=== PATIENT | female | born 1995 | race Caucasian/White ===

== ENCOUNTER → 2019-12-23 10:12 | Outpatient (CLI) | payer OTHER, SELFPAY ==
--- NOTE | ~2019-12-23 | US_ITS ---
EXAMINATION: US OB <= 14 weeks fetus DATE: 12/23/2019 11:28 INDICATION: Evaluate dating of with indeterminate last menstrual periods. TECHNIQUE: Real-time pelvic ultrasound utilizing transabdominal probe was performed. The nicloe marley radiologist was not present for the study. COMPARISON: None. FINDINGS: The uterus measures 15.3 x 7.0 x 10.6 cm. There is an intrauterine gestational sac. A single fetus i s identified within the gestational sac. The crown rump length measures 6.2 cm, which correlates with an estimated gestational age of 12 weeks and 4 days. heart motion is identified measuring 158 beats per minute (bpm) by M-mode Doppler. The placenta is anterior. 16 x 8 x 15 mm hypoechoic likely subchorionic hematoma along the left side of the gestational sac. The right ovary is not visualized. The left ovary measures 3.2 x 2.5 x 2.3 cm. There is no free fluid in the pelvis. IMPRESSION: 1. Single living fetus with heart rate of 158 bpm. 2. Gestational age by ultrasound of 12 weeks 4 day(s) +/- 1 week and 1 day with ultrasound estimated date of delivery (LEE) of 07/02/2020. 3. Small subchorionic hematoma. Reviewed, dictated and finalized at location A. STRY EXTENSION SPECIALIST IMPRESSION: 1. Single living fetus with heart rate of 158 bpm. 2. Gestational age by ultrasound of 12 weeks 4 day(s) +/- 1 week and 1 day wit h ultrasound estimated date of delivery (LEE) of 07/02/2020. 3. Small subchorionic hematoma.
--- NOTE | ~2019-12-23 | US_ITS ---
EXAMINATION: US breast LT limited HISTORY: Probable lump of the lower outer left breast TECHNIQUE: Limited left breast ultrasound was performed. FINDINGS: There is a 2.1 x 1.3 cm oval, parallel, hypoechoic mass with microlobulated margin at the 5 :00 location 2 cm from the nipple corresponding to the palpable abnormality of concern. There are ash e areas of posterior acoustic shadowing and peripheral vascularity. IMPRESSION: Indeterminate left breast mass corresponding to the area of palpable concern. Ultrasound-guided biops y is recommended. BI-RADS category 4, suspicious findings. Reviewed, dictated and finalized at location A. SLATIVE DIRECTOR IMPRESSION: Indeterminate left breast mass corresponding to the area of palpable concern. U ltrasound-guided biopsy is recommended. BI-RADS category 4, suspicious findings.
== END ==
PROVIDERS: Visit Provider Obstetrics & Gynecology
DX: Z36.9 Encounter for antenatal screening, unspecified (principal); N63.24 Unspecified lump in the left breast, lower inner quadrant; R92.8 Other abnormal and inconclusive findings on diagnostic imaging of breast; Z3A.12 12 weeks gestation of pregnancy
CPT/HCPCS: 76642; 76801

== ENCOUNTER → 2020-01-19 10:26 | Outpatient (CLI) | payer OTHER, SELFPAY ==
--- NOTE | ~2020-01-19 | US_ITS ---
US OB limited 01/19/2020 10:57 Indication: Subchorionic hemorrhage Procedure: Real-time transabdominal obstetrical ultrasound Comparison: 12/23/2019 Findings: There is a single living intrauterine with heart rate of 142 BPM. Amniotic fluid is subjectively normal. There is a persistent small subchorionic hemorrhage 7.5 x 2.4 x 0.6 cm which has increased in size compared with prior examination when it measured 1.6 x 1.5 x 0.8 cm. Impression: 1: Single living intrauterine with heart rate of 142 BPM. 2: Enlarging subchorionic hemorrhage. Reviewed, dictated and finalized at location B. S OFFICE ADMINISTRATOR Impression: 1: Single living intrauterine with heart rate of 142 BPM. 2: Enlarging subchorionic hemorrhage.
== END ==
PROVIDERS: Visit Provider Obstetrics & Gynecology
DX: O36.8910 Maternal care for other specified fetal problems, first trimester, not applicable or unspecified (principal); Z3A.00 Weeks of gestation of pregnancy not specified; O46.91 Antepartum hemorrhage, unspecified, first trimester
CPT/HCPCS: 76815

== ENCOUNTER → 2020-02-13 10:50 | Outpatient (CLI) | payer OTHER, SELFPAY ==
--- NOTE | ~2020-02-13 | US_ITS ---
EXAMINATION: US OB >= 14 weeks Fetus DATE: 02/13/2020 11:23 INDICATION: Second trimester anatomic survey, history of subchorionic hemorrhage TECHNIQUE: Real-time ultrasound of the pelvis was performed. COMPARISON: 01/19/2020 FINDINGS: There is a single living fetus in breech presentation. The placenta is anterior and 5.2 cm from the i nternal cervical os. There is a 1.6 x 0.9 cm hypoechoic area along the superior margin of placenta an d a 2.5 x 0.7 cm hypoechoic area along the inferior margin of the placenta. heart rate is 146 b eats per minute (bpm). cardiac activity and movement are noted. The amniotic fluid index is subjectively normal. The following anatomy was identified as normal: 4 chamber heart 3 vessel cord cord insertion kidneys urinary bladder stomach spine diaphragm ventricles cisterna magna cerebellum The following biometric data were obtained: Biparietal diameter (BPD): 4.6 cm; head circumference (HC): 17.3 cm; abdominal circumference (AC): 14 .8 cm; femur length (FL): 2.8 cm. These measurements are concordant. Estimated weight is 298 g +/- 44 g, which correlates with the 22nd percentile when 07/02/2020 is used as estimated date of delivery. As single measurements, these parameters are each equal to the following estimated gestational ages w ith ranges of +/- 2 standard deviations: BPD: 20 weeks 0 days ( 18 weeks 2 days - 21 weeks 5 days). HC: 19 weeks 6 days ( 18 weeks 3 days - 21 weeks 2 days). AC: 20 weeks 1 days ( 18 weeks 0 days - 22 weeks 1 days). FL: 18 weeks 5 days ( 17 weeks 0 days - 20 weeks 4 days). estimated gestational age based solely on measurements from this exam is 19 weeks 5 days +/- 1 weeks 3 days. IMPRESSION: 1. Single living fetus in breech presentation. 2. Estimated weight is 298 g +/- 44 g, which correlates with the 22nd percentile when 07/02/2020 is used as estimated date of delivery. 3. Two persistent small hypoechoic areas adjacent to the placenta which have decreased in size, possi mohit reflecting small chronic hemorrhages. Reviewed, dictated and finalized at location B. IMPRESSION: 1. Single living fetus in breech presentation. 2. Estimated weight is 298 g +/- 44 g, which correlates with the 22nd per centile when 07/02/2020 is used as estimated date of delivery. 3. Two persistent small hypoechoic areas adjacent to the placenta which have de creased in size, possibly reflecting small chronic hemorrhages.
== END ==
PROVIDERS: Visit Provider Obstetrics & Gynecology Gynecology
DX: O32.1XX0 Maternal care for breech presentation, not applicable or unspecified (principal); Z3A.19 19 weeks gestation of pregnancy
CPT/HCPCS: 76805

== ENCOUNTER 2020-03-13 09:56 | Outpatient (RCR) | payer OTHER, SELFPAY ==
--- NOTE | ~2020-03-13 | US_ITS ---
US OB limited DATE: 03/13/2020 12:18 INDICATION: Possible subchorionic hemorrhages TECHNIQUE: Real-time imaging and color flow imaging and Doppler analysis COMPARISON: 02/13/2020 obstetrical ultrasound FINDINGS: There is interval diminished size of 2 previously reported reported small marginal hypoecho ic areas of the placenta, currently measuring approximately 6 x 8 mm and 5.2 x 7.6 mm, previously rep orted at 25 x 7 mm and 16 x 9 mm size on 02/13/2020. Anterior placenta. Fetus is in breech presentation, longitudinal lie. heart rate of 144 bpm. Normal amount of an egg fluid by subjective assessment. IMPRESSION: Diminished size of previously reported possible marginal subchorionic hemorrhages. Reviewed, dictated and finalized at Location A. Reviewed, dictated and finalized at location A. IMPRESSION: Diminished size of previously reported possible marginal subchorion ic hemorrhages.
== END 2020-06-11 23:59 | disposition home or self-care (01) ==
LOC: ANHIMG 09:56
PROVIDERS: Visit Provider Obstetrics & Gynecology
DX: O36.8910 Maternal care for other specified fetal problems, first trimester, not applicable or unspecified (principal); Z3A.00 Weeks of gestation of pregnancy not specified
CPT/HCPCS: 76815

== ENCOUNTER 2020-04-10 09:08 | Outpatient (CLI) | payer OTHER, SELFPAY ==
--- NOTE | ~2020-04-10 | US_ITS ---
EXAMINATION: US OB limited EXAM DATE: 04/10/2020 09:45 INDICATION: Subchorionic hematomas. Second trimester. TECHNIQUE: Pelvic obstetrical transabdominal sonogram was performed by a technologist. There are mu ltiple grayscale and Doppler images available for interpretation. Comparison is made to prior examina tion from 03/13/2020. FINDINGS: There is a single fetus identified in transverse presentation with a heart rate of 131 beat s per minute. The placenta is located in the anterior position. Cervical canal length about [address] acental margin to internal cervical os distance is 9 cm. Again there are 2 subcentimeter placental marginal regions, measuring 5 x 4 x 5 mm and 8 x 7 x 8 mm, similar appearance to prior study, could be small seromas (sequela from prior hematomas) or venous la kes, unchanged compared to 03/13/2020. IMPRESSION: 1. Single fetus in transverse presentation with heart rate 131 beats per minute. 2. Two subcentimeter placental marginal regions, could be seromas or venous lakes. Reviewed, dictated and finalized at location A. IMPRESSION: 1. Single fetus in transverse presentation with heart rate 131 beats per minut e. 2. Two subcentimeter placental marginal regions, could be seromas or venous la kes.
== END 2020-04-10 09:09 | disposition home or self-care (01) ==
PROVIDERS: Visit Provider Obstetrics & Gynecology
DX: O36.8930 Maternal care for other specified fetal problems, third trimester, not applicable or unspecified (principal); Z3A.00 Weeks of gestation of pregnancy not specified
CPT/HCPCS: 76815

== ENCOUNTER 2020-06-21 12:45 | Outpatient (CLI) | payer OTHER, SELFPAY ==
[2020-06-21 13:26] LABS: Hemoglobin 9.7 g/dL (12.0-15.0); Mean Corpuscular HGB Conc 32.3 g/dl (32-36); Mean Corpuscular Hemoglobin 27.6 pg (26-34); Mean Corpuscular Volume 85.2 fl (80-100); Mean Platelet Volume 11.9 fl (7.4-10.4); Platelet Count Result 137 k/mm3 (150-375); Red Blood Count 3.52 M/mm3 (4.2-5.4); Red Cell Distribution Width 14.8 % (11.5-14.5); White Blood Count 6.8 K/mm3 (4.5-10.0)
[2020-06-22 11:05] LABS: Rapid Plasma Reagin Non-Reactive (NonReactive)
== END 2020-06-21 12:46 | disposition home or self-care (01) ==
LOC: ANHLAB 12:48
PROVIDERS: PCP Obstetrics & Gynecology; Visit Provider Obstetrics & Gynecology
DX: Z34.90 Encounter for supervision of normal pregnancy, unspecified, unspecified trimester (principal); Z3A.00 Weeks of gestation of pregnancy not specified
CPT/HCPCS: 36415; 85027; 86592; 86850; 86900; 86901

== ENCOUNTER 2020-06-22 05:43 | Inpatient (IN) | payer OTHER, SELFPAY ==
--- NOTE | 2020-06-21 10:08 | WPDANESEPP ---
Anes - Eval Pre Procedure Procedure: Operation Date: 06/22/20 07:30 Proposed Procedures p Repeat Section - Nicholas Felix MD Date/Time: 06/21/20 10:08 Pre Op Diagnosis: Pre-admit Patient Data Age: 24 Gender: F Height: Weight: Allergies Allergy/AdvReac Type Severity Reaction Status Date / Time No Known Allergies Allergy Unverified 10/18/18 15:31 Home Medications Medication Instructions Recorded Confirmed Type PNV cmb#95-ferrous fumarate-FA 1 tablet PO DAILY 06/02/20 06/02/20 History [] Patient hx anesthesia problems: none Family hx anesthesia problems: none PMFSH Past Medical History Medical History Heart murmur As infant Family History Family History Other No pertinent family history Social History Social History Substance use: never Gender identity (if verbalized by the patient): Female Spiritual care concerns: No Exam Day of Procedure 06/21/20 10:08
[2020-06-22] VITALS (68 sets, daily range): BP systolic 87–120; BP diastolic 52–91; PULSE 47–131; RESP 13–18; TEMP 36.2–36.8; O2SAT 81–100; BMI 31.0
--- NOTE | 2020-06-22 04:22 | HP_ITS ---
DATE OF SERVICE: 06/22/2020 CHIEF COMPLAINT: Repeat low transverse section. HISTORY OF PRESENT ILLNESS: The patient is a 24-year-old, G3, P2 at 39 weeks, dated by 1st trimester ultrasound scan for EDC on June 26, 2020. The patient reports positive movement. No leakage of fluid. First complicated by subchorionic hematoma resolved and two repeat section. OBSTETRIC AND GYNECOLOGIC HISTORY: x2, largest fetus 9 pounds 11 ounces. MEDICAL HISTORY: Denies. SURGICAL HISTORY: section x2. SOCIAL HISTORY: Denies tobacco, alcohol, or drug use. The patient is . REVIEW OF SYSTEMS: Mild nausea, otherwise, negative. PHYSICAL EXAMINATION: VITAL SIGNS: Blood pressure 110/70, weight 199 pounds, pulse 76. HEART: Regular rate and rhythm. LUNGS: Clear to auscultation. ABDOMEN: Soft and gravid. ASSESSMENT AND PLAN: This is a 24-year-old, G3, P2, at 39 weeks scheduled for repeat section. Risks, benefits, and alternatives of procedure were discussed with the patient in detail including risk of bleeding, infection, trauma, and damage to any surrounding organs. The patient reports understanding of these risks and desires to proceed with section. D I MT: Mary
--- NOTE | 2020-06-22 06:43 | WPDANESEFPP ---
Anes - Eval Final PreProcedure Day of Procedure 06/22/20 06:43 Patient weight: obese Heart: regular rate and rhythm Lungs: clear to auscultation Airway: Mallampati scale class II Neurological: alert and oriented Last oral intake: >/= 8 hours ASA classification: II Emergent: no Anesthetic plan: proceed Anesthesia type and monitoring: regional spinal and standard monitoring Informed Consent: The patient's anesthetic plan and its attendant risks and benefits were discussed with the patient/family/POA. Questions were solicited and answers provided to the satisfaction of the patient/family/POA.
--- NOTE | 2020-06-22 06:55 | LDADM ---
This patient, Tricia Parry, was admitted to Labor/Delivery/Recovery 120 on 06/22/20 at 05:43. Plans for labor, pain management and were discussed with patient. Patient/family oriented to hospital policies and general routines including ID bracelet, bed and alarms, visiting hours, pain management, procedures, bathroom and other care routines, personal items, smoking policy, room service/diet and guest tray routines, security routines, and visiting hours. Patient/Family are encouraged to report perceived risks to care and to ask questions if they do not understand what they are told or what they should do. See OBIX for further documentation.
[2020-06-22] MEDS: LACTATED RINGERS 250 ML 999 ML IVPB (07:15)
[2020-06-22] MEDS: LACTATED RINGERS 1,000 ML 125 ML IV CONT (07:16)
[2020-06-22 07:53] LABS: HIV 1/2 Ab P24 Ag Result Negative (Negative)
--- NOTE | 2020-06-22 08:27 | P.PCNOB_ITS ---
OB - Delivery Note Procedure Delivery date: 06/22/20 Procedure: Procedures Operation Date: 06/22/20 07:30 <No data on this case meets the specified criteria> Intrapartal events: None Route of delivery: Estimated blood loss (mL): 570 Disposition: observation [place] Baby Date of : 06/22/20 Time of : 07:56 Weeks of gestation at delivery: 39 gender: Male Weight (pounds): 6 Weight (ounces): 7 presentation: vertex cord vessel description: 3 Vessels, Nuchal Cord, Loose and Clamped/Cut score one minute: 9 score five minutes: 9
[2020-06-22] MEDS: LORATADINE 10 MG TABLET PO (09:31)
[2020-06-22] MEDS: OXYTOCIN 30 UNITS/NS 500 ML 30 UNITS/500 ML BAG 125 UNITS IV CONT (10:40)
[2020-06-22] MEDS: KETOROLAC 30 MG/ML VIAL (*BKC) IV PUSH (11:12)
[2020-06-22] MEDS: diphenhydrAMINE HCl INJ 50 MG/ML VIAL 25 MG IV PUSH (12:14)
--- NOTE | 2020-06-22 12:40 | PC.NURSE ---
Patient transferred to post room #291 via [id number]. Support person present. Oriented to unit, room, information board, rooming in, admission packet and security measures. Patient verbalizes understanding.
[2020-06-22] MEDS: DEXTROSE 5%/0.45% SOD CHL 1,000 ML 125 ML IV CONT (15:20)
--- NOTE | 2020-06-22 19:19 | OP_ITS ---
DATE OF PROCEDURE: 06/22/2020 PREOPERATIVE DIAGNOSIS: Repeat section. POSTOPERATIVE DIAGNOSIS: Repeat section. PROCEDURE PERFORMED: Repeat low transverse section. ANESTHESIA: Spinal. COMPLICATIONS: None. ESTIMATED BLOOD LOSS: 570 mL. URINE OUTPUT: 100 mL of clear urine. FINDINGS: Male infant, 6 pounds 7 ounces. Apgars 9, 9, vertex presentation. DESCRIPTION OF PROCEDURE: Patient was taken to the operating room with IV running, prepared and draped in a normal sterile fashion, placed in a supine position with a leftward tilt. A Pfannenstiel skin incision was made with a scalpel, carried down to the underlying layer of fascia. The fascial incision was then extended bilaterally with Phelps scissors. The superior aspect of the incision was grasped with Lorenzo clamps, elevated, and dissected off the rectus muscles. The inferior aspect of the incision was grasped with Lorenzo clamps, elevated, and dissected off the rectus muscles. Rectus muscles were in the midline, and the peritoneum was grasped with Peans and entered sharply with Metzenbaum scissors. A bladder blade was then inserted. The vesicouterine peritoneum was then grasped with Peans and entered sharply with Metzenbaum scissors. A bladder flap was created. Bladder blade was reinserted. Lower uterine segment was incised in a transverse fashion with a scalpel. The head was delivered atraumatically. Clear fluid noted. Nuchal cord x1 reduced. The remainder of fetus was delivered. The cord was clamped and cut. Baby was handed off to waiting nurse. Cord blood and cord gases were obtained. Placenta was delivered spontaneously. The uterus was cleared of all clots and debris. The uterine incision was closed with 0 Vicryl in a running locked fashion. A 2nd layer of the same suture was used to imbricate this incision. The uterus was returned to the abdomen. Interceed was placed after irrigating the gutters and cleaning clot and debris. The uterine incision was covered with Interceed in a T-fashion. The muscles were examined for hemostasis. Fascia was closed with 0 Vicryl in a running stitch. Subcutaneous tissue was irrigated copiously. Hemostasis was assured. Subcutaneous tissue was closed with 3-0 plain gut, and the skin was closed with 4-0 Vicryl on a Melo needle. Sponge, lap, and needle counts were correct x2. The patient received 2 g Ancef prior to the skin incision. Flakito Mendoza #: [id number] I MT: Mary
[2020-06-22] MEDS: IBUPROFEN 600 MG TABLET PO (21:33)
[2020-06-22] MEDS: ACETAMINOPHEN 325 MG TABLET 650 MG PO (21:34)
[2020-06-23 00:45] VITALS: BP 98/59; PULSE 74; RESP 18; TEMP 37; O2SAT 97
[2020-06-23 05:32] LABS: Basophils Percent Auto 0.2 % (0.2-1.2); Eosinophils Percent Auto 0.5 % (0-4.4); Hematocrit 29.1 % (37.0-47.0); Hemoglobin 9.4 g/dL (12.0-15.0); Immature Granulocyte Absolute 0.04 K/mm3 (0.00-0.031); Immature Granulocyte Percent A 0.5 % (0-0.5); Lymphocytes Percent Auto 18.5 % (18.3-44.2); Mean Corpuscular HGB Conc 32.3 g/dl (32-36); Mean Corpuscular Hemoglobin 27.8 pg (26-34); Mean Corpuscular Volume 86.1 fl (80-100); Mean Platelet Volume 12.2 fl (7.4-10.4); Monocytes Absolute Auto 0.5 K/mm3 (0.1-0.6); Monocytes Percent Auto 5.7 % (2.6-8.5); Neutrophils Percent Auto 74.6 % (45.5-73.1); Platelet Count Result 124 k/mm3 (150-375); Red Blood Count 3.38 M/mm3 (4.2-5.4); Red Cell Distribution Width 14.9 % (11.5-14.5); White Blood Count 8.1 K/mm3 (4.5-10.0)
[2020-06-23 07:39] LABS: Rapid Plasma Reagin Non-Reactive (NonReactive)
--- NOTE | 2020-06-23 07:45 | PC.NURSE ---
PT introductions made and plan of care discussed per post op c section, pain management, breast feeding, daily care activities. PT verbalized understanding of such care.
[2020-06-23 07:55] VITALS: BP 108/55; PULSE 72; RESP 16; TEMP 36.6; O2SAT 99
[2020-06-23 08:00] VITALS: PULSE 72; RESP 16; O2SAT 99
--- NOTE | 2020-06-23 08:06 | WPDANLDPN2 ---
Anes-Prog Note L&D Date/Time: 06/23/20 08:06 Comfortable throughout: section Neuraxial method: spinal Epidural/Spinal procedure site: clean & non-tender Neuro status: Neuro function grossly intact. Cardiovascular status: normal Respiratory status: normal Airway patency: baseline Mental status: baseline Post-Op hydration status: normal Vital Signs: Last Vital Signs Temp 98.6 F 06/23/20 00:45 Pulse 74 06/23/20 00:45 Resp 18 06/23/20 00:45 BP 98/59 L 06/23/20 00:45 Pulse Ox 97 06/23/20 00:45 I/O: Intake & Output 06/22/20 06/23/20 06/23/20 23:59 07:59 15:59 Intake Total 240 1250 Output Total 150 1200 Balance 90 50 Post-procedural complaints: none Patient feedback: Patient satisfied with anesthetic care.
--- NOTE | 2020-06-23 08:07 | WPDANLDNPN2 ---
Anes-Prog Note L&D-Neuraxial Date/Time: 06/23/20 08:07 Neuraxial medications: intrathecal PF morphine Opiod-related complaints: none Patient feedback: Patient satisfied with post-operative pain management.
[2020-06-23] MEDS: IBUPROFEN 600 MG TABLET PO ×3 (08:09→20:46)
[2020-06-23] MEDS: MULTIVIT/MIN/PREN/FOL AC/IRON TABLET 1 TAB PO (08:09)
[2020-06-23] MEDS: ACETAMINOPHEN 325 MG TABLET 650 MG PO (08:10)
[2020-06-23] MEDS: POLYSACCHARIDE IRON COMPLEX 150 MG CAPSULE PO ×2 (08:11→17:39)
[2020-06-23] MEDS: SIMETHICONE 80 MG TAB.CHEW PO ×3 (08:11→17:40)
[2020-06-23] MEDS: DOCUSATE SODIUM 100 MG CAPSULE PO ×2 (08:14→17:39)
--- NOTE | 2020-06-23 09:26 | PM.OBPNVD ---
OB - PN: Subj Subjective Date/time seen: 06/23/20 09:26 S: doing well no complaints OB - PN: Obj Data Labs CBC & Chem 7: 06/23/20 04:59 Labs: Laboratory Results - last 24 hr 06/22/20 06/23/20 05:53 04:59 WBC 8.1 RBC 3.38 L Hgb 9.4 L Hct 29.1 L MCV 86.1 MCH 27.8 MCHC 32.3 RDW 14.9 H Plt Count 124 L MPV 12.2 H Immature Gran % (Auto) 0.5 Neut % (Auto) 74.6 H Lymph % (Auto) 18.5 Crockett % (Auto) 5.7 Eos % (Auto) 0.5 Baso % (Auto) 0.2 Lymph # (Auto) 1.50 Crockett # (Auto) 0.5 Eos # (Auto) 0.0 Baso # (Auto) 0.0 Abs Immat Gran (auto) 0.04 H Absolute Neuts (auto) 6.0 Absolute Nucleated RBC 0.0 Nucleated RBC % 0.0 RPR Non-reactive OB - PN A/P Assessment and Plan (1) S/P repeat low transverse : Code(s): Z98.891 - History of uterine scar from previous surgery Status: Acute Assessment and Plan: continue with pp care. Time Spent With Patient Time: Total time spent is greater than 50% in coordination of care (as documented) at patient's floor/unit and/or counseling patient: Exam GI: Other: incision c/d/i uterus at umbilicus
--- NOTE | 2020-06-23 10:35 | PC.NURSE ---
Mother verbalizes she is able to independently latch with appropriate positioning/alignment. She denies any nipple discomfort, is feeding as required and waking to feed if needed. Reviewed feeding cues, frequencies, duration of feedings, feeding elimination flow sheet, and signs of adequate intake. Demonstrated stimulation techniques to wake for feeding. Nipple care reviewed. Requested mother to call out for RN/LC for observation of latch and /or if she is unable to latch for feeding or she has discomfort with nursing. Instructed feeding should be initiated three hours from start of last feeding or if feeding cues are noted before. Mother voiced understanding of information shared.
[2020-06-23 18:57] VITALS: BP 128/73; PULSE 78; RESP 16; TEMP 36.8
[2020-06-24] MEDS: SIMETHICONE 80 MG TAB.CHEW PO ×3 (00:15→08:46)
[2020-06-24] MEDS: IBUPROFEN 600 MG TABLET PO ×2 (03:06→08:47)
[2020-06-24 07:00] VITALS: BP 123/73; PULSE 75; RESP 16; TEMP 36.5; O2SAT 100
--- NOTE | 2020-06-24 08:00 | PM.OBPNVD ---
OB - PN: Subj Subjective Date/time seen: 06/24/20 08:00 S: doing well no complaints desires home OB - PN: Obj Data Labs CBC & Chem 7: 06/23/20 04:59 OB - PN A/P Assessment and Plan (1) S/P repeat low transverse : Code(s): Z98.891 - History of uterine scar from previous surgery Status: Acute Assessment and Plan: d/c home Time Spent With Patient Time: Total time spent is greater than 50% in coordination of care (as documented) at patient's floor/unit and/or counseling patient: Time with patient: less than 15 minutes Exam GI: Other: inc clean and dry firm fundus below umbilicus
[2020-06-24] MEDS: POLYSACCHARIDE IRON COMPLEX 150 MG CAPSULE PO (08:46)
[2020-06-24] MEDS: MULTIVIT/MIN/PREN/FOL AC/IRON TABLET 1 TAB PO (08:46)
[2020-06-24] MEDS: DOCUSATE SODIUM 100 MG CAPSULE PO (08:46)
--- NOTE | 2020-06-24 09:45 | PC.NURSE ---
Observed mother is able to independently latch with appropriate positioning/alignment. She denies any nipple discomfort, is feeding as required and waking infant to feed if needed. has had at least 8 effective feedings in the past 24 hours, and is currently meeting outcomes for weight, output, jaundice and feeding frequencies. Mother states she feels confident to continue effective at home. Mother has slight bruising to right nipple from a incorrect latch during the night and pumped a few times instead of putting infant to breast. Reviewed transition to breast milk, signs of adequate intake, and engorgement/relief. Instructed to call ICP if intake/output less than required. Reviewed regular medications mother is taking. Information provided per [place]. Reviewed community resources on the [facility] website and in the Mom/Baby guide. Information on outpatient services provided. Mother has no further questions at this time.
[2020-06-25 15:19] VITALS: BP 127/74; PULSE 88; RESP 22; O2SAT 100
--- NOTE | 2020-07-08 07:50 | PM.OBDSVD ---
DS: Admitting Diagnosis Admitting Diagnosis Admitting Diagnosis: R C/S DS: Discharge Diagnosis Discharge Diagnosis (1) S/P repeat low transverse : Code(s): Z98.891 - History of uterine scar from previous surgery Status: Acute OB - DS: Summary OB Procedures : Ultrasound OB Procedures Intrapartum: OB Procedures: : None Peripartum Data Delivery Method: Section Procedures: Procedures Operation Date: 06/22/20 07:30 Actual Procedures Side Surgeon p Repeat Section Nicholas Felix MD complications: none Time Spent with Patient Time attestation: Total time spent providing and/or coordinating discharge services: Discharge Plan Discharge Attending physician on discharge: Nicholas Felix Consulting providers: Lucius Blackburn ; Schuyler Pottre Discharging Clinician: Nicholas Felix Patient Disposition: Home, Self-Care Activity: may shower and pelvic rest Diet: regular Wound Care Instructions: incision open to air Discharge Instructions: Education: Mom and Baby Guide Given to: Mother Follow-Up: Call your delivering provider's office for an appointment to be seen in: as directed by physician Mom and baby should come to the [facility] for the follow-up appointment. Appointment Date/Time: June 25, 2020 at 9:00 am What to expect at your follow-up visit: Blood Pressure Check Physical Assessment Call [phone] if you are unable to keep your appointment time. BREAST CARE: * Wear a snug supportive bra. * For engorgement discomfort: Breast Feeding: * Apply warm moist washcloths * Express milk as needed to relieve engorgement * Wear loose clothing * For sore nipples: * Identify correct latch-on * Apply warm moist washcloths before and after nursing * Air dry nipples after nursing * May apply Lansinoh cream to nipples ABDOMINAL INCISION: (if applicable) * Allow incision to air dry * Do NOT use lotions for powders on your incision * When showering, allow soap and water to run over the incision, but do not wash incision EPISIOTOMY/PERINEAL CARE: * Until bleeding stops, use your sanjay bottle after urinating * Change your pad frequently throughout the day * You may take sitz baths several times a day (fill your bathtub with warm water and soak for 20 minutes.) Do NOT bathe in the water * No tub baths until seen by your physician - You may shower ACTIVITY: * Rest as much as possible. * Do not exercise or lift anything heavier than your baby (such as laundry or other children.) * Avoid stairs or driving as much as possible. * Do not put anything into the vagina. No douching, tampons, or sexual activity until seen by physician. NOTIFY PHYSICIAN IF YOU HAVE ANY QUESTIONS OR IF ANY OF THE FOLLOWING SYMPTOMS OCCUR: * If your episiotomy or incision becomes red, swollen, or more painful than what you have experienced in the hospital. * If your vaginal bleeding becomes foul smelling. * If your vaginal bleeding becomes more heavy than a period or if your bleeding changes from pink to bright red. However, you may pass an occasional walnut-sized clot once or twice for the first week . * If you experience a sharp, shooting pain in you calves. * If you discover a hard, reddened area on your breast or if you experience flu-like symptoms. * Temperature of 100.4 or higher DIET: * Eat regular, well-balanced meals. * Drink plenty of fluids daily. If , drink to thirst. Stand Alone Forms: General Discharge Information Follow-up/Referrals: Nicholas Felix MD [Physician] - Discharge Medications: New hydrocodone-acetaminophen [[place]] 5-325 mg tablet 1 tablet PO Q4H PRN (Reason: pain) Qty: 30 RF: 0 Continued PNV cmb#95-ferrous fumarate-FA [] 28 mg iron- 800 mcg Tablet
== END 2020-06-24 12:52 | disposition home or self-care (01) | DRG 788 ==
LOC: ANHLDR 05:46 → ANHOB2 10:56
PROVIDERS: Admitting Provider Obstetrics & Gynecology; Visit Provider Obstetrics & Gynecology
PROC: 10D00Z1 Extraction of Products of Conception, Low, Open Approach (ICD-10-PCS; CPT 59514; principal; 2020-06-22 07:30)
DX: O34.211 Maternal care for low transverse scar from previous cesarean delivery (principal); Z37.0 Single live birth; Z3A.39 39 weeks gestation of pregnancy; O99.214 Obesity complicating childbirth; E66.9 Obesity, unspecified; O69.81X0 Labor and delivery complicated by cord around neck, without compression, not applicable or unspecified
CPT/HCPCS: 36415; 85025; 85027; 86592; 86703; 86850; 86900; 86901; A9270; G0432; J0131; J1200; J1885; J2274; J2370; J2405; J2590; J7120

== ENCOUNTER 2020-07-26 13:02 | Emergency (ER) | payer OTHER, SELFPAY ==
[2020-07-26 13:10] VITALS: BP 142/93; PULSE 88; RESP 20; TEMP 36.8; O2SAT 100
--- NOTE | 2020-07-26 13:28 | ED.URI ---
HPI - URI/Sore Throat General Chief Complaint: Upper Respiratory Infection Stated Complaint: sore throat Time Seen by Provider: 07/26/20 13:11 Source: patient and RN notes reviewed Mode of arrival: ambulatory Limitations: no limitations History of Present Illness HPI Narrative: Patient presents today complaining of sore throat and left ear pain since last night. Denies any additional symptoms to include fever, headache, postnasal drip, loss of taste or smell, nausea, vomiting, diarrhea. Pain increases with eating and swallowing. Describes the pain is sharp and currently rates it sick/10. She has tried no [id number] interventions prior to arrival. Denies history of seasonal allergies, but does states she has an extensive history of strep throat. Denies concerns for COVID-19. MD elicited complaint: sore throat Related Data Home Medications Medication Instructions Recorded Confirmed No Home Medications 07/26/20 07/26/20 Allergies Allergy/AdvReac Type Severity Reaction Status Date / Time No Known Allergies Allergy Verified 07/26/20 13:05 Review of Systems Review of Systems: Narrative: CONSTITUTIONAL: Denies body aches, fever, chills, or sweats. EYES: Denies visual changes, redness, or discharge. ENT: Denies rhinorrhea, congestion. + Sore throat, left ear pain CARDIOVASCULAR: Denies chest pain, palpitations, or edema. RESPIRATORY: Denies cough or dyspnea. GASTROINTESTINAL: Denies abdominal pain, nausea, vomiting, or diarrhea. GENITOURINARY: Denies dysuria or hematuria. SKIN: Denies rash, itching, or wounds. MUSCULOSKELETAL: Denies back pain, joint pain, or myalgia. NEUROLOGIC: Denies headache, numbness, tingling, or weakness. PSYCH: Denies depression or anxiety. [facility] Past Medical History Medical History (Updated 07/26/20 @ 13:30 by Cinthia Plummer, [facility], ) Heart murmur As Surgical History Surgical History (Updated 06/23/20 @ 09:28 by Nicholas Felix MD) S/P repeat low transverse Social History Social History Smoking status: Never smoker Substance use: never Gender identity (if verbalized by the patient): Female Spiritual care concerns: No Comments At time of signature, I have reviewed and agree with nursing past medical, surgical, social and family history unless otherwise noted. Please see nursing chart for further information. There is no relevant family history pertinent to the presenting complaint Exam Narrative: Exam Narrative: GENERAL: Well-appearing, well-nourished, and in no acute distress. HEAD: Normocephalic, atraumatic. EYES: EOMI. No redness or drainage. Conjunctivae normal. ENT: Mucous membranes pink and moist. Nares clear. No rhinorrhea. TMs normal bilaterally. Throat mildly erythematous and edematous with white postnasal drainage noted. Uvula midline. NECK: Normal AROM. Supple. No lymphadenopathy. CHEST: No respiratory distress. Clear to auscultation. HEART: Regular rate and rhythm. No murmur appreciated. Normal peripheral pulses. EXTREMITIES: Normal range of motion. No edema. SKIN: Warm, dry, no rash. Capillary refill normal. Normal skin turgor. NEURO: No focal deficits. Alert and oriented x3. Gait steady. PSYCH: Normal affect. No signs of depression or anxiety. Course Vital Signs Vital signs: Vital Signs Temperature 98.2 F 07/26/20 13:10 Pulse Rate 88 07/26/20 13:10 Respiratory Rate 07/26/20 13:10 Blood Pressure 142/93 H 07/26/20 13:10 Pulse Oximetry 100 07/26/20 13:10 Temperature 98.2 F 07/26/20 13:10 Pulse Rate 88 07/26/20 13:10 Respiratory Rate 07/26/20 13:10 Blood Pressure 142/93 H 07/26/20 13:10 Pulse Oximetry 100 07/26/20 13:10 Reviewed. Pt has been instructed to follow up with her PCP regarding her elevated blood pressure today. MDM - URI/Sore Throat MDM Narrative Medical decision making narrative: Patient dec
== END 2020-07-26 13:33 | disposition home or self-care (01) ==
PROVIDERS: Emergency Provider Nurse Practitioner
DX: J02.9 Acute pharyngitis, unspecified (principal)
CPT/HCPCS: 87081; 87880; 99213; G0463

== ENCOUNTER 2024-05-06 13:05 | Outpatient (CLI) | payer OTHER, SELFPAY ==
--- NOTE | ~2024-05-06 | US_ITS ---
US pelvic complete Ordering provider: Kim Alvarez MD History: . Missing IUD strings . Comparison: April 10, 2020 Technique: Transabdominal and endovaginal ultrasound of the pelvis (Doppler ultrasound interrogation techniques used as needed for this exam.) FINDINGS: CERVIX: Normal. UTERUS: Measures 11.9x 4.2x 6.3 cm in length which is within normal limits and is anteverted. No nir metrial masses. ENDOMETRIUM: Normal in thickness measuring 6 mm. Echogenic areas seen in the uterine cavity suggestiv e of the IUD in the endometrial cavity. CUL DE SAC: No free fluid. RIGHT OVARY: Normal in size measuring 3.6x 2.7x 2.4 cm. Normal echotexture. Doppler vascular flow pre sent. LEFT OVARY: Normal in size measuring 2.8x 2.1x 2.9 cm. Normal echotexture. Doppler vascular flow pres ent. ADNEXA: Normal. No mass. IMPRESSION: IUD is seen in the uterus. Otherwise, normal pelvic ultrasound. Reviewed, dictated and finalized at location A.
== END 2024-05-06 13:06 ==
PROVIDERS: PCP Obstetrics & Gynecology Gynecology; Visit Provider Obstetrics & Gynecology Gynecology
DX: T83.32XA Displacement of intrauterine contraceptive device, initial encounter (principal)
CPT/HCPCS: 76856